=== PATIENT | female | born 1925 | race Caucasian/White ===

== ENCOUNTER 2016-09-28 17:34 | Inpatient (IN) | payer MEDICARE ==
[~2016-09-28] VITALS: Ht 165.1 cm; Wt 77.1 kg
[2016-09-28 19:12] LABS: APPEARANCE CLEAR (CLEAR); BILIRUBIN NEGATIVE (NEGATIVE); COLOR STRAW (YELLOW); GLUCOSE 1000 mg/dL (NEGATIVE); KETONE NEGATIVE (NEGATIVE); LEUKOCYTE ESTERASE NEGATIVE (NEGATIVE); NITRITE NEGATIVE (NEGATIVE); PROTEIN TRACE mg/dL (NEGATIVE); SPECIFIC GRAVITY 1.015 (1.005-1.020); UROBILINOGEN NORMAL (NORMAL)
[2016-09-28 19:13] LABS: BACTERIA FEW /hpf (NONE SEEN); EPITHELIAL CELLS 0-5 /hpf (0-5); MUCUS <1+ /lpf (NONE SEEN); RED CELLS - URINE 0-5 /hpf (0-5); WHITE CELLS - URINE 0-5 /hpf (0-5)
[2016-09-28 20:06] LABS: BASOPHILS 0.4 % (0.0-2.0); EOSINOPHILS 0.6 % (0-7); HEMATOCRIT 40.4 % (36.0-48.0); HEMOGLOBIN 13.1 g/dL (12-16); IMMATURE GRANULOCYTES 0.4 % (0-5); LYMPHOCYTES 6.2 % (15-50); MCHC 32.4 g/dL (31.0-37.0); MCV 89.6 fL (80.0-100.0); MEAN PLATELET VOLUME 11.1 fL (7.4-10.4); MONOCYTES 4.8 % (2-11); NEUTROPHILS 87.6 % (40-80); RBC 4.51 10x6/uL (4.00-5.40); RDW 13.6 % (11.5-14.5)
[2016-09-28 20:09] LABS: PLATELET COUNT 251 10x3/uL (130-400)
[2016-09-28 20:19] LABS: APTT 26.2 SECONDS (22.8-39.4); INR 1.03 (0.85-1.17); PROTIME 13.4 SECONDS (11.6-15.0)
[2016-09-28 20:23] LABS: ALBUMIN 3.9 g/dL (3.4-5.0); ANION GAP 15.1 mmol/L (8-16); BILIRUBIN - TOTAL 0.29 mg/dL (0.2-1.3); CALCIUM 8.4 mg/dL (8.5-10.1); CARBON DIOXIDE 26.4 mmol/L (21.0-32.0); CREATININE - SERUM 1.3 mg/dL (0.6-1.3); POTASSIUM - SERUM 4.5 mmol/L (3.5-5.1); PROTEIN - SERUM 7.5 g/dL (6.4-8.2)
[2016-09-28] MEDS ORDERED: OXYBUTYNIN CHLOR5 MG PO (21:21)
[2016-09-28] MEDS ORDERED: TOPROL XL50 MG PO (21:22)
[2016-09-28] MEDS ORDERED: NORVASC10 MG PO (21:22)
[2016-09-28] MEDS ORDERED: JANUVIA50 MG PO (21:23)
[2016-09-28] MEDS ORDERED: LIPITOR10 MG PO (21:23)
[2016-09-28] MEDS ORDERED: GLIMEPIRIDE4 MG PO (21:24)
[2016-09-28] MEDS ORDERED: LEVOTHYROXINE75 MCG PO (21:24)
[2016-09-28 23:03] VITALS: BP 139/59; BMI 28.3
[2016-09-29 02:15] VITALS: BP 139/59
[2016-09-29 04:00] VITALS: BP 152/82
--- NOTE | 2016-09-29 08:15 | NUR ---
AWAKE ALERT COLOR ADQ SKIN WARM AND DRY NPO FOR SURG THIS AM.
--- NOTE | 2016-09-29 08:46 | NUR ---
TO OR VIA FAMILY AT BEDSIDE.
[2016-09-29 10:36] VITALS: BP 156/68
[2016-09-29 10:52] VITALS: Ht 165.1 cm; Wt 77.1 kg
[2016-09-29 11:31] VITALS: BP 140/70
--- NOTE | 2016-09-29 11:34 | NUR ---
RECD TO ROOM 2220 VIA BED FROM RR SLEEPY BUT AROUSABLE 02 AT 3L N/C AT PRESENT DSG INTACT TO LEFT HIP AT PRESENT.
[2016-09-29 12:00] VITALS: BP 136/66
--- NOTE | 2016-09-29 13:00 | NUR ---
SLEEPING QUIETLY AT PRESENT N/C VOICED.
--- NOTE | 2016-09-29 15:00 | NUR ---
SLEEPING QUIETLY ICE TO LEFT HIP DSG SCD IRENE IN PLACE.
[2016-09-29 15:12] VITALS: BP 146/79
--- NOTE | 2016-09-29 17:00 | NUR ---
FAMILY AT BEDSIDE TAKING SUPPER WELL AND RET.
--- NOTE | 2016-09-29 19:00 | NUR ---
STATUS REMAINS UNCHGD AT PRESENT BROCK CATH IN PLACE .
--- NOTE | 2016-09-30 02:53 | NUR ---
PATIENT CONFUSED AND ACCIDENTLY PULLED OUT PIV TO LFA, CATHETER INTACT. NEW PIV PLACED IN LFA JUST PROXIMAL TO THE WRIST.
[2016-09-30 04:00] VITALS: BP 132/89
[2016-09-30 04:58] LABS: BASOPHILS 0.1 % (0.0-2.0); EOSINOPHILS 0 % (0-7); HEMOGLOBIN 10.7 g/dL (12-16); IMMATURE GRANULOCYTES 0.4 % (0-5); LYMPHOCYTES 6.2 % (15-50); MCH 28.4 pg (26.0-34.0); MCHC 31.5 g/dL (31.0-37.0); MCV 90.2 fL (80.0-100.0); MONOCYTES 7.5 % (2-11); NEUTROPHILS 85.8 % (40-80); RBC 3.77 10x6/uL (4.00-5.40); RDW 13.8 % (11.5-14.5); WBC 15.6 10x3/uL (4.8-10.8)
[2016-09-30 04:59] LABS: PLATELET COUNT 198 10x3/uL (130-400)
--- NOTE | 2016-09-30 05:09 | NUR ---
PATIENT LAYING IN BED CONFUSED WITH VISUAL HALLUCINATIONS. NO SIGNS OF DISTRESS, HAS BROCK CATHETER. DRESSING TO RIGHT HIP INTACT WITH ICE PACK APPLIED NEXT TO IT. PIV RESITED TO THE UNDERSIDE OF THE LFA INFUSING 1/2NS@75. BED IN LOWEST LOCKED POSITION, HOB ELEVATED 30 DEGREES, CALL LIGHT WITHIN REACH, BED ALARM ON.
[2016-09-30 05:18] LABS: ANION GAP 14.2 mmol/L (8-16); CALCIUM 7.8 mg/dL (8.5-10.1); CARBON DIOXIDE 24.8 mmol/L (21.0-32.0); CREATININE - SERUM 1.1 mg/dL (0.6-1.3)
[2016-09-30 05:30] VITALS: BP 143/71
--- NOTE | 2016-09-30 07:15 | NUR ---
SLEEPING QUIETLY AT PRESENT RESP EVEN AND UNLABORED AT PRESENT 02 CONT AT 2L N/C AT PRESENT DSG TO LEFT HIP CLEAN DRY INTACT AT PRESENT BROCK CATH IN TACT AND DRAINING YELLOW URINE AT PRESENT.
--- NOTE | 2016-09-30 09:00 | NUR ---
MEDS GIVEN TELMA WELL AT PRESENT PT MORE ALERT AT PRESENT.
[2016-09-30 09:01] VITALS: BP 156/63
[2016-09-30 12:06] VITALS: BP 137/38
--- NOTE | 2016-09-30 13:30 | NUR ---
WIDE AWAKE IN ROOM UP IN CHAIR PER PT DSG TO LEFT HIP WITH ICE INTACT.
--- NOTE | 2016-09-30 15:00 | NUR ---
REMAINS CONFUSED PT RE-ORIENTED AT PRESENT DENIES ANY NEEDS AT PRESENT.
[2016-09-30 16:26] VITALS: BP 147/60
--- NOTE | 2016-09-30 17:00 | NUR ---
QUIET IN ROOM AT PRESENT DENIES ANY NEEDS AT PRESENT CONT CONFUSED AT PRESENT.
--- NOTE | 2016-09-30 19:08 | NUR ---
STATUS REMAINS UNCHGD AT PRESENT.
--- NOTE | 2016-09-30 20:22 | NUR ---
PATIENT ATTENDING, VISUAL AND AUDIO HALLUCINATIONS, NO ACUTE DISTRESS. BED ALARM ON, IN LOWEST LOCKED POSITION, CALL LIGHT ON.
[2016-09-30 21:00] VITALS: BP 135/53
[2016-10-01 01:00] VITALS: BP 140/60
--- NOTE | 2016-10-01 04:00 | NUR ---
PATIENT AWAKE IN BED, CONFUSED AND HALLUCINATING. IV TO LEFT FA PATENT WITH NO REDNESS OR SWELLING. BROCK DRAINING TO GRAVITY. DRESSING TO LEFT HIP CDI. SCD'S ON. B/A ON. SRX2. BED LOW. DOOR OPEN.
[2016-10-01 05:00] VITALS: BP 128/55
[2016-10-01 05:43] LABS: ANION GAP 15.8 mmol/L (8-16); CALCIUM 7.4 mg/dL (8.5-10.1); CARBON DIOXIDE 23.9 mmol/L (21.0-32.0); POTASSIUM - SERUM 3.7 mmol/L (3.5-5.1)
[2016-10-01 05:54] LABS: BASOPHILS 0.2 % (0.0-2.0); EOSINOPHILS 0.1 % (0-7); IMMATURE GRANULOCYTES 0.4 % (0-5); LYMPHOCYTES 7.2 % (15-50); MCH 29.2 pg (26.0-34.0); MCHC 32.3 g/dL (31.0-37.0); MCV 90.4 fL (80.0-100.0); MEAN PLATELET VOLUME 11.4 fL (7.4-10.4); MONOCYTES 8.5 % (2-11); NEUTROPHILS 83.6 % (40-80); PLATELET COUNT 173 10x3/uL (130-400); RBC 3.43 10x6/uL (4.00-5.40); RDW 13.9 % (11.5-14.5); WBC 16.4 10x3/uL (4.8-10.8)
--- NOTE | 2016-10-01 07:20 | NUR ---
ASSESSMENT PER FLOW SHEET.PT WITHOUT DISTRESS.DRESSING TO LEFT HIP CLEAN,DRY AND INTACT.DENIES PAIN AT PRESENT.BED ALARM ON AND FUNCTIONING.CALL LIGHT IN REACH
[2016-10-01 08:18] VITALS: BP 145/53
[2016-10-01 08:50] LABS: APPEARANCE HAZY (CLEAR); BILIRUBIN 1+ (NEGATIVE); COLOR STRAW (YELLOW); GLUCOSE 250 mg/dL (NEGATIVE); KETONE MODERATE mg/dL (NEGATIVE); LEUKOCYTE ESTERASE 1+ (NEGATIVE); NITRITE NEGATIVE (NEGATIVE); PROTEIN 2+ mg/dL (NEGATIVE); UROBILINOGEN NORMAL (NORMAL)
[2016-10-01 08:57] LABS: AMORPHOUS SEDIMENT <1+ /lpf (NONE SEEN); BACTERIA NONE SEEN /hpf (NONE SEEN); EPITHELIAL CELLS 0-5 /hpf (0-5); GRANULAR CAST OCC /lpf (NONE SEEN); MUCUS <1+ /lpf (NONE SEEN); RED CELLS - URINE 0-5 /hpf (0-5); WHITE CELLS - URINE 0-5 /hpf (0-5)
--- NOTE | 2016-10-01 11:07 | OP ---
PATIENT NAME: FADY MARIN MEDICAL RECORD: [id number] :[birth year] LOCATION:[facility] ADMISSION DATE:09/28/16 SURGEON: HANY ESQUIVEL MD DATE OF OPERATION: 09/28/2016 PREOPERATIVE DIAGNOSIS: Comminuted intratrochanteric hip fracture of the left hip. POSTOPERATIVE DIAGNOSIS: Comminuted intratrochanteric hip fracture of the left hip. PROCEDURE: Cephalomedullary fixation of comminuted intertrochanteric hip fracture -- gamma nail. SURGEON: Hany Esquivel MD ANESTHESIA: General. INTRAOPERATIVE COMPLICATIONS: None. SUMMARY OF PATHOLOGIC FINDINGS: The patient with comminuted intertrochanteric hip fracture consistent with preoperative radiographs and diagnosis. OPERATIVE SUMMARY IN DETAIL: The patient was brought to the operating table and placed on the operating table in supine position. After general laryngeal mask was administered, the patient was placed on the fracture table where the right leg was placed in the well leg hyde. The left leg was placed in the traction boot. She was held firmly to the operating table using the vacuum pack suction system and this secured the strap. Traction was pulled resulting in a near anatomic mu-ism seen on both AP and lateral planes. The hip was prepped and draped in a routine sterile fashion. Curvilinear awl was used to make a starting tip. A ball-tipped guidewire was driven past the fracture and down the leg. Proximal reaming was followed by insertion of the 125 short gamma nail to the appropriate depth. The guidewire was placed in a center-center position for reaming for the compression screw. A compression screw was gently put into place to the appropriate position. It was compressed and a derotational screw was deployed. Distal locking screw was then put in this time under fluoroscopy. Having completed this, full length films were taken. The wound was irrigated and closed in the usual fashion with #1 Vicryl followed by 2-0 Vicryl and skin nikhil. Sterile dressings were applied. The patient was awakened, taken to recovery in stable condition. All final needle and sponge counts were correct. TRANSINT:[id number] Voice Confirmation ID: [id number] DOCUMENT ID: [id number] HANY ESQUIVEL MD at 1104 CC: [id number] DICTATION DATE: 09/29/16 1120 STEM SIZER: 09/29/16 1137 ADM IN [facility] [address] [place] [address]
--- NOTE | 2016-10-01 11:17 | NUR ---
PT HERE ON UNIT TO ASSIST FROM CHAIR TO BATHROOM.PT SITTING UP MOST OF MORNING.FALL PRECAUTIONS REMAINS IN PLACE.MONITOR
--- NOTE | 2016-10-01 12:20 | NUR ---
Rehab Note- Rehab Prescreen order received. The patient is post op day #2 for left hip fracture due to fall. Will plan to admit to [facility] Tues(10/02/16) if the patient is in aggreeance and the physician feels that she is ready to be transferred out of the acute hospital. Thank you for this referral! Jacquelyn Figueroa RN Clinical Liaison, Jim
[2016-10-01 12:27] VITALS: BP 143/66
--- NOTE | 2016-10-01 14:19 | NUR ---
Patient Name: FADY MARIN Admission Status: ER Accout number: [id number] Admission Date: 09-28-2016 : 1925 Admission Diagnosis: Attending: LING Current LOS: 3 Anticipated DC Date: 10-03-2016 Planned Disposition: Inpatient Rehab Primary Insurance: MEDICARE A & B Discharge Planning Comments: CM MET WITH PATIENT REGARDING D/C NEEDS AND PLANS. PATIENT STATED SHE LIVES AT [facility] AND THEY HAVE AN ELEVATOR AT THE FACILITY. PATIENT STATED SHE IS INDEPENDENT WITH HER CARE AND HAS A CANE, AND SHOWER BENCH AT HER HOME. PATIENTS PCP IS DR. LAU AND PH[facility]ACY IS [facility]. PATIENT WILL GO TO IP REHAB AT DISCHARGE. CM WILL CONTINUE TO FOLLOW PATIENT WITH D/C NEEDS AND PLANS. PCP DR. SID MAHER ON [facility] (PHARMACY) [phone] ALDO HERNANDEZ () Server Programmer: Alicia Lopez Is the patient Alert and Oriented? Yes 0 * How many steps to enter\exit or inside your home? ELEV. 0 * PCP DR. LAU 0 * Pharmacy [facility] 0 * Preadmission Environment Other 0 * Other Environment INDEPENDENT LIVING 0 * Facility Name [facility] 0 * ADLs Independent 0 * Equipment Cane Tub Bench 0 * List name and contact numbers for known caregivers / representatives who currently or will assist patient after discharge: ALDO HERNANDEZ 0 * Community resources currently utilized None 0 * Additional services required to return to the preadmission environment? Yes 0 * Can the patient safely return to the preadmission environment? Yes 0 * Has this patient been hospitalized within the prior 30 days at any hospital? No 0 Grand Total: 0
--- NOTE | 2016-10-01 14:42 | NUR ---
NUTRITION MONITORING & EVAL CHART REVIEWED, PT VISIT X2 BUT SLEEPING. ADA DIET WITH 25% INTAKE MEALS. WILL CONTINUE TO PROVIDE DIET, MONITOR PO INTAKE. RD FOLLOWING
[2016-10-01 15:55] VITALS: BP 135/55
--- NOTE | 2016-10-01 20:00 | NUR ---
ASSESSMENT NV FLOWSHEET. DRESSING TO LEFT HIP INCISION C/D/I. SR UP X2 CALL LIGHT WITHIN REACH IV PATENT LEFT FOREARM OF 1/2NS AT 75CC'/HR SITE CLEAR. BROCK TO BEDSIDE DRAINAGE. O2 ON 3L/M PER NC. NO DISTRESS.
[2016-10-01 21:00] VITALS: BP 133/59
--- NOTE | 2016-10-01 21:30 | NUR ---
MEDS GIVEN PER OCT. LACU=324. 2 UNITS OF REGULAR INSULIN GIVEN SUBC PER S/S.
--- NOTE | 2016-10-02 | NUR ---
EYES CLOSED RESPIRATIONS WITH EASE AND UNLABORED.
[2016-10-02 01:58] VITALS: BP 128/58
[2016-10-02 05:00] VITALS: BP 119/60
[2016-10-02 05:39] LABS: BASOPHILS 0.1 % (0.0-2.0); EOSINOPHILS 1.4 % (0-7); HEMOGLOBIN 9.4 g/dL (12-16); IMMATURE GRANULOCYTES 0.6 % (0-5); LYMPHOCYTES 6.7 % (15-50); MCH 28.6 pg (26.0-34.0); MCHC 32.4 g/dL (31.0-37.0); MEAN PLATELET VOLUME 11.8 fL (7.4-10.4); NEUTROPHILS 82.2 % (40-80); PLATELET COUNT 186 10x3/uL (130-400); RBC 3.29 10x6/uL (4.00-5.40); RDW 13.6 % (11.5-14.5); WBC 12.3 10x3/uL (4.8-10.8)
[2016-10-02 05:57] LABS: MCV 88.1 fL (80.0-100.0)
--- NOTE | 2016-10-02 06:09 | NUR ---
KTRK=870. NO COVERAGE NEEDED MEDS PER OCT.
[2016-10-02 06:13] LABS: ANION GAP 16.2 mmol/L (8-16); CALCIUM 7.3 mg/dL (8.5-10.1); CARBON DIOXIDE 22.9 mmol/L (21.0-32.0); POTASSIUM - SERUM 3.1 mmol/L (3.5-5.1)
--- NOTE | 2016-10-02 06:31 | NUR ---
K+ RESULTS=3.1. 40MEQ KCL PO GIVEN PER ELECTROLYTE PROTOCAL. WILL REPEAT LAB AT 1000 AM AND IN AM.
[2016-10-02 07:59] VITALS: BP 139/64
--- NOTE | 2016-10-02 09:00 | NUR ---
ASSESSMENT PER FLOW SHEET.PT WITHOUT DISTRESS.CALL LIGHT IN REACH
[2016-10-02 12:06] VITALS: BP 115/53
[2016-10-02] MEDS ORDERED: HYDROCODONE-APA1 TAB PO (13:05)
[2016-10-02] MEDS ORDERED: ELIQUIS2.5 MG PO (13:05)
--- NOTE | 2016-10-02 14:01 | NUR ---
BROCK DCD ORDERED.450CC OF YELLOW URINE EMPTIED FROM BAG.
--- NOTE | 2016-10-02 15:22 | NUR ---
REPORT TO RUPERTO ON REHAB.PT WILL GO TO ROOM [id number]
--- NOTE | 2016-10-02 16:02 | NUR ---
TO REHAB VIA WHEELCHAIR TO ROOM 8022S
== END 2016-10-02 16:04 | DRG 481 ==
LOC: D.ER 17:34 → OBSVTIME 20:21 → D.MS 20:21
PROVIDERS: Family Medicine; Physician Assistant; ADMIT Orthopaedic Surgery
PROC: 0QS736Z Reposition Left Upper Femur with Intramedullary Internal Fixation Device, Percutaneous Approach (ICD-10-PCS; principal; 2016-09-28)
DX: S72.142A Displaced intertrochanteric fracture of left femur, initial encounter for closed fracture (principal); D62 Acute posthemorrhagic anemia; W17.89XA Other fall from one level to another, initial encounter; G47.30 Sleep apnea, unspecified; I10 Essential (primary) hypertension; E11.65 Type 2 diabetes mellitus with hyperglycemia; E03.9 Hypothyroidism, unspecified

== ENCOUNTER 2016-10-02 16:15 | Inpatient (IN) | payer MEDICARE ==
[~2016-10-02] VITALS: Ht 165.1 cm; Wt 74.8 kg
--- NOTE | 2016-10-02 14:45 | NUR ---
PATIENT ADMITTED TO REHAB FROM MED SURG. BROUGHT DOWN BY STAFF IN WHEELCHAIR. DIAG: S/P LEFT HIP FRACTURE. ALERT/ORIENT. HX OF FALLS. BED ALARM ON. PATIENT WEARS GLASSES, HAS BILATERAL HEARING AIDS, AND PARCLES UPPER. TRANSFERED INTO BED WITH MOD ASST OF ONE. DRESSING TO LEFT HIP C/D/I.
[~2016-10-02 16:15] MED LIST: ELIQUIS2.5 MG PO; GLIMEPIRIDE4 MG PO; HYDROCODONE-APA1 TAB PO; JANUVIA50 MG PO; LEVOTHYROXINE75 MCG PO; LIPITOR10 MG PO; NORVASC10 MG PO; OXYBUTYNIN CHLOR5 MG PO; TOPROL XL50 MG PO
[2016-10-02 17:19] VITALS: BP 127/57; BMI 27.5
--- NOTE | 2016-10-02 18:24 | NUR ---
RESTING QUIETLY IN BED
--- NOTE | 2016-10-02 19:37 | NUR ---
ASSISTED PT MOD ASSIST WITH TRANSFER FROM TOILET TO W/C AND FROM BED TO CHAIR, MAS ASSIST TO TRANSFER TO LYING POSITION. PT C/O PAIN IN LEFT HIP, DENIES NEED FOR PAIN MEDICATION STATING USUALLY IS OK WHEN SHE IS LYING SUPINE WITH HOB SLIGHTLY ELEVATED. PHONE AND PERSONAL NEEDS WITHIN REACH.
--- NOTE | 2016-10-02 19:39 | NUR ---
SCD ON BILAT
--- NOTE | 2016-10-02 22:00 | NUR ---
PT. IN BED WITH HOB UP FOR COMFORT AND IS WATCHING TV. NO VOICED COMPLAINTS AT THIS TIME AND CALL LIGHT IS WITHIN REACH.
--- NOTE | 2016-10-03 00:03 | NUR ---
PT. IN BED WITH HOB UP FOR COMFORT WITH EYES CLOSED AND RESP. EVEN. CALL LIGHT WITHIN REACH.
--- NOTE | 2016-10-03 04:14 | NUR ---
PT. IN BED WITH HOB UP FOR COMFORT WITH EYES CLOSED AND RESP. EVEN. CALL LIGHT WITHIN REACH.
--- NOTE | 2016-10-03 08:00 | NUR ---
SITTING UP IN BED EATING BREAKFAST.DENIES NEEDS.
[2016-10-03 08:17] VITALS: BP 116/60
--- NOTE | 2016-10-03 08:23 | NUR ---
PATIENT ALERT/ORIENT X4. SITTTING UP IN BED TO EAT BREAKFAST. BED ALARM ON DUE TO HX OF FALLS. CALL LIGHT WITHIN REACH.
--- NOTE | 2016-10-03 10:01 | NUR ---
PATIENT IN REHAB ROOM. WORKING WITH PHYSICAL THERAPIST.
--- NOTE | 2016-10-03 11:30 | NUR ---
GLUCOSE LEVEL 322. EIGHT UNITS OF SLIDING SCALE INSULIN GIVEN
[2016-10-03 12:56] VITALS: Ht 165.1 cm; Wt 74.8 kg
--- NOTE | 2016-10-03 15:12 | NUR ---
PATIENT TO BE R/A ON [place]END.
--- NOTE | 2016-10-03 15:34 | NUR ---
CARE TEAM MEETING: PATIENT NEW TO UNIT AND WILL BE RA AT NEXT MEETING. PCP IS DR. LAU, SHE RESIDES AT [facility]. SHE HAS CANE AND SHOWER BENCH. WILL CONTINUE TO FOLLOW WITH PATIENT UNTIL DISCHARGED
--- NOTE | 2016-10-03 17:05 | NUR ---
GLUCOSE LEVEL 131. NO SLIDING SCALE INSULIN GIVEN
[2016-10-03 19:00] VITALS: BP 125/73
--- NOTE | 2016-10-03 19:45 | NUR ---
PT. IN BED WITH HOB UP FOR COMFORT WITH EYES CLOSED AND RESP. EVEN. PT. AWAKENS EASILY FOR ASSESSMENT. PT. IS VERY [place] AND ALMOST EVERYTHING HAS TO BE REPEATED. PT. HAS NO VOICED NEEDS AT THIS TIME AND SHE HAS HER CALL LIGHT WITHIN REACH.
--- NOTE | 2016-10-03 23:04 | NUR ---
PT. IN BED WITH HOB UP FOR COMFORT WITH EYES CLOSED AND RESP. EVEN. CALL LIGHT WITHIN REACH.
--- NOTE | 2016-10-04 03:04 | NUR ---
PT. IN BED WITH HOB UP FOR COMFORT WITH EYES CLOSED AND RESP. DEEP AND EVEN. CALL LIGHT WITHIN REACH.
--- NOTE | 2016-10-04 07:50 | NUR ---
SITTING UP IN BED WITH CALLIGHT IN REACH.
[2016-10-04 10:18] VITALS: BP 135/68
--- NOTE | 2016-10-04 11:55 | NUR ---
SITTING IN WHEELCHAIR IN ROOM. BS 265, 6 UNITS OF HUMALOG INSULIN GIVEN.
--- NOTE | 2016-10-04 13:42 | NUR ---
SITTING IN WHEELCHAIR IN THE GYM.
--- NOTE | 2016-10-04 15:39 | NUR ---
RESTING IN BED WOITH CALLIGHT IN REACH.
--- NOTE | 2016-10-04 16:50 | NUR ---
RESTING IN BED TALKING ON THE PHONE.
--- NOTE | 2016-10-04 19:50 | NUR ---
ASSISTED PT TO BATHROOM WITH MOD ASSISTANCE WITH BED TRANSFERS, ASSIST FROM SIT TO STAND POSITION ON TOILET, NEEDS MAX ASSIST WITH LOWER EXTREMITY DRESSING, PT HAS DIFFICULTY BENDING AND REACHING. PT CONVERSES ABOUT DAUGHTER ILLNESS. PT DENIES ANY OTHER NEEDS.
[2016-10-04 19:51] VITALS: BP 120/56
--- NOTE | 2016-10-04 21:25 | NUR ---
PT PLEASANT, ASSISTED WITH HS CARES, TAKES MEDICATIONS WITHOUT DIFFICULTY, CONVERSIVE. EATING HS SNACK. PT DENIES ANY OTHER NEEDS.
--- NOTE | 2016-10-05 00:40 | NUR ---
PT RESTING QUIETLY, HOB SLIGHTLY ELEVATED, RESPIRATIONS REGULAR AND UNLABORED, NO ACUTE S/S OF DISTRESS.
[2016-10-05 05:54] LABS: BASOPHILS 0.2 % (0.0-2.0); EOSINOPHILS 2.5 % (0-7); HEMATOCRIT 31.4 % (36.0-48.0); HEMOGLOBIN 10.1 g/dL (12-16); IMMATURE GRANULOCYTES 1.8 % (0-5); LYMPHOCYTES 7.3 % (15-50); MCH 28.8 pg (26.0-34.0); MCHC 32.2 g/dL (31.0-37.0); MCV 89.5 fL (80.0-100.0); MONOCYTES 8.8 % (2-11); NEUTROPHILS 79.4 % (40-80); RBC 3.51 10x6/uL (4.00-5.40); RDW 13.8 % (11.5-14.5); WBC 12.6 10x3/uL (4.8-10.8)
[2016-10-05 06:04] LABS: PLATELET COUNT 286 10x3/uL (130-400)
[2016-10-05 06:17] LABS: ANION GAP 15.4 mmol/L (8-16); CALCIUM 7.7 mg/dL (8.5-10.1); CARBON DIOXIDE 24.7 mmol/L (21.0-32.0); POTASSIUM - SERUM 4.1 mmol/L (3.5-5.1)
--- NOTE | 2016-10-05 06:49 | NUR ---
PT IN BED WITH HOB UP FOR COMFORT, EYES CLOSED, CHEST RISING AND FALLING, BED IN LOWEST POSITION AND CALL LIGHT WITHIN REACH.
--- NOTE | 2016-10-05 07:55 | NUR ---
CALL FOR ASSISTANCE TO BR AND UP TO TOILET WITHOUT ANY FALLS NOTED.
[2016-10-05 08:55] VITALS: BP 130/55
--- NOTE | 2016-10-05 09:49 | RHP ---
PATIENT: FADY MARIN MEDICAL RECORD: [id number] ACCOUNT: [id number] [facility] : [birth year] ADMISSION DATE: 10/02/16 REHABILITATION HISTORY AND PHYSICAL EXAMINATION POST ADMISSION PHYSICIAN EXAMINATION Post-Admission Physical Exam and History and Physical DATE OF ADMISSION: 10/02/2016 ADMITTING DIAGNOSES: Status post acute closed left hip fracture, status post gamma nail and acute blood loss anemia. HISTORY OF PRESENT ILLNESS: The patient is an elderly female who was admitted to inpatient rehab status post acute closed left hip fracture with postop complications acute blood loss anemia. She is 89 years young. She was admitted for left hip fracture, reports that she was at home, she tripped when she was getting out of the car. She is currently a resident of [facility]. She has got a past medical history of hypertension, diabetes and hypothyroidism. She had a total knee replacement in 2009. She is completely independent with her ADLs and mobility prior to the fall. She is currently max assist with her ADLs and is max assist with her mobility. She plans to return back to [facility] and would like to get back to her prior level of function if possible. COMORBIDITIES: Include hypertension, diabetes, blood loss anemia, hypothyroidism, falls, pain, some dyspnea and shortness of breath in the past. PAST MEDICAL HISTORY: Significant for diabetes, hypertension and hypothyroidism. PAST SURGICAL HISTORY: Includes gallbladder removal, thyroid removed and knee replacement, now gamma nail to her hip. ALLERGIES: No known drug allergies. CURRENT MEDICATIONS: Include Januvia 50 mg daily, metoprolol 50 mg daily, Synthroid 75 mcg daily, amlodipine 10 mg daily, she is on a low resistant sliding scale with Humalog, Ditropan 5 mg b.i.d., Sherborn 1 tab q.4 hours p.r.n., she is on Amaryl 4 mg b.i.d. with meals, atorvastatin 10 mg at bedtime, Eliquis 2.5 mg b.i.d. and polyethylene glycol 17 grams in 8 ounces of water daily. HABITS: No alcohol or tobacco use. FAMILY HISTORY: Noncontributory. SOCIAL HISTORY: The patient hopes to return back to [facility] and get back to her prior level of functioning. She is . REVIEW OF SYSTEMS: GENERAL: Does complain of weakness. HEENT: She denies cold, cough, or congestion. CARDIOVASCULAR: Denies chest pain. PHYSICAL EXAMINATION: VITAL SIGNS: Stable, afebrile. HISTORY AND PHYSICAL [id number] FADY MARIN GENERAL: Elderly female in no acute distress, alert upon exam. HEENT: Normocephalic, atraumatic. Mucosa moist. NECK: Supple. No lymphadenopathy. LUNGS: Clear at this time. HEART: A regular rate and rhythm. ABDOMEN: Benign. EXTREMITIES: No clubbing, cyanosis, or edema. She does have normal postop swelling to her hip region. NEUROLOGIC: Intact. ASSESSMENT: This is an 89-year-old female patient admitted to rehab with a working diagnosis of status post left hip fracture with closed reduction and fixation with the gamma nail. The patient has potential to make improvement. We instituted the following multidisciplinary therapies including, but not limited to, physical, occupational, respiratory, speech, nutritional services, prosthetics and orthotics. Given her complex condition and risk for more complications, rehabilitation services cannot be provided at a low level of care such as a [facility] facility. PLAN: 1. Admit to [facility] rehab for intensive inpatient therapy to include the following disciplines: A. Physical therapy to improve gait, all transfer skills and bed mobility to a modified independent level. B. Occupational therapy to improve activities of daily living to a modified independent level. C. Case management to assist with discharge planning and placement options. D. Nutrition to assist with nutritional needs. E. Rehabilitation nursing to assist in monitoring the patient's underlying medical conditions and to assist with any type of bowel or bladder management. 2. The patient's current medication and medical care will be continued. 3. The patient will be placed on standard fall precautions. 4. The patient's estimated length of stay is approximately 7-10 days. 5. We will hopefully get her back to her prior level of function, back to [facility] quickly. TRANSINT:[id number] Voice Confirmation ID: [id number] DOCUMENT ID: [id number] NAPOLEON MULTANI MD at 0949 CC: [id number] DICTATION DATE: 10/03/16 0924 PROFESSOR OF VISUAL ARTS: 10/03/16 1658 ADM IN [place] [id number] [place] [address]
--- NOTE | 2016-10-05 11:45 | NUR ---
ASSISTED FROM BED TO WHEELCHAIR FOR LUNCH.
--- NOTE | 2016-10-05 13:30 | NUR ---
RESTING IN BED WITH CALLIGHT IN REACH.
--- NOTE | 2016-10-05 14:11 | NUR ---
Nutrition Follow Up: Chart reviewed. Pt is eating 58% meal avg on a Diabetic diet. Meds and labs noted. +BM 10/04/16. Wt stable. Pt with fair po intake at this time. Rec continue current diet. RD following.
--- NOTE | 2016-10-05 15:08 | NUR ---
SITTING IN WHEELCHAIR IN THE ROOM.
--- NOTE | 2016-10-05 17:21 | NUR ---
SITTING IN WHEELCAIR IN THE ROOM.
[2016-10-05 19:15] VITALS: BP 122/57
--- NOTE | 2016-10-05 19:40 | NUR ---
PT. SITTING UP IN W/C AND REQUESTED ASSISTANCE TO BR TO VOID. ASSISTED PT. TO BR AND ASSISTED BACK TO BED PER HER REQUEST. ASSESSMENT COMPLETED. NO VOICED NEEDS AT THIS TIME AND PT. HAS HER CALL LIGHT WITHIN REACH.
--- NOTE | 2016-10-05 21:30 | NUR ---
PT. IN BED WITH HOB UP FOR COMFORT WITH EYES CLOSED AND RESP. EVEN. PT. AWAKENS EASILY AND HAS NO VOICED NEEDS AT THIS TIME AND HER CALL LIGHT IS WITHIN REACH.
--- NOTE | 2016-10-05 23:05 | NUR ---
PT. IN BED WITH HOB UP FOR COMFORT WITH EYES CLOSED AND RESP. DEEP AND EVEN. CALL LIGHT REMAINS WITHIN HER REACH.
--- NOTE | 2016-10-06 02:06 | NUR ---
PT. IN BED WITH HOB UP FOR COMFORT WITH EYES CLOSED AND RESP. DEEEP AND EVEN. CALL LIGHT WITHIN REACH.
[2016-10-06 07:00] VITALS: BP 110/74
--- NOTE | 2016-10-06 07:55 | NUR ---
ASSISTED TO WHEELCHAIR FROM THE BED WITHOUT ANY FALLS NOTED.
--- NOTE | 2016-10-06 09:45 | NUR ---
SITTING IN WHEELCHAIR AND TOOK MEDS WITH EASE.
--- NOTE | 2016-10-06 11:25 | NUR ---
SITTING IN WHEELCHAIR IN ROOM. BS 262, 6 UNITS OF HUMALOG GIVEN.
--- NOTE | 2016-10-06 17:46 | NUR ---
SITTING UP IN W/C EATING SUPPER. CALL LIGHT IN REACH
--- NOTE | 2016-10-06 19:40 | NUR ---
PT. UP IN W/C FROM DAY SHIFT AND IS WANTING TO SIT UP LONGER. ASSESSMENT COMPLETED. NO VOICED NEEDS AT THIS TIME AND HER CALL LIGHT IS WITHIN REACH.
--- NOTE | 2016-10-06 21:15 | NUR ---
PT. REQUESTING TO GO BACK TO BED FROM W/C. ASSISTED BACK TO BED WITH MOD. ASSISTANCE. PT. POSITIONED TO COMFORT AND HAS HER CALL LIGHT WITHIN REACH. PT. WANTS TYLENOL TONIGHT WITH NIGHT TIME MEDS TO SEE IF THAT WILL HELP HER STIFFNESS IF SHE NEEDS TO GET UP IN THE MIDDLE OF THE NIGHT. CALL LIGHT WITHIN REACH.
[2016-10-06 22:55] VITALS: BP 129/53
--- NOTE | 2016-10-07 03:03 | NUR ---
PT. IN BED WITH HOB UP FOR COMFORT AND LLE UP ON PILLOW FOR COMFORT WITH EYES CLOSED AND RESP. DEEP AND EVEN. CALL LIGHT REMAINS WITHIN REACH.
[2016-10-07 07:00] VITALS: BP 102/53
--- NOTE | 2016-10-07 07:30 | NUR ---
LAYING IN BED RESTING QUIETLY CALL LIGHT IN REACH
--- NOTE | 2016-10-07 18:10 | NUR ---
IN W/C IN ROOM.
--- NOTE | 2016-10-07 19:40 | NUR ---
PT. IN BED WITH HOB UP FOR COMFORT AND REPORTS SHE IS READY FOR SLEEP AND WOULD LIKE HER TYLENOL WITH BED TIME MEDICATIONS. ASSESSMENT COMPLETED. NO OTHER VOICED NEEDS AT THIS TIME AND HER CALL LIGHT IS WITHIN REACH.
--- NOTE | 2016-10-07 22:37 | NUR ---
PT. IN BED WITH HOB UP FOR COMFORT WITH EYES CLOSED AND RESP. DEEP AND EVEN. CALL LIGHT WITHIN REACH.
[2016-10-07 23:40] VITALS: BP 145/49
--- NOTE | 2016-10-08 00:50 | NUR ---
PT. IN BED WITH HOB UP FOR COMFORT WITH EYES CLOSED AND RESP. DEEP AND EVEN. CALL LIGHT IS WITHIN REACH.
--- NOTE | 2016-10-08 02:54 | NUR ---
IN BED WITH HOB UP FOR COMFORT WITH EYES CLOSED AND RESP. DEEP AND EVEN. CALL LIGHT REMAINS WITHIN HER REACH.
--- NOTE | 2016-10-08 04:12 | NUR ---
PT. IN BED WITH HOB UP FOR COMFORT WITH EYES CLOSED AND RESP. DEEP AND EVEN. CALL LIGHT WITHIN REACH.
[2016-10-08 06:01] LABS: BASOPHILS 0.5 % (0.0-2.0); EOSINOPHILS 2.7 % (0-7); HEMATOCRIT 28.7 % (36.0-48.0); HEMOGLOBIN 9.4 g/dL (12-16); IMMATURE GRANULOCYTES 4.3 % (0-5); LYMPHOCYTES 11.4 % (15-50); MCH 28.9 pg (26.0-34.0); MCHC 32.8 g/dL (31.0-37.0); MCV 88.3 fL (80.0-100.0); MONOCYTES 9.3 % (2-11); NEUTROPHILS 71.8 % (40-80); RBC 3.25 10x6/uL (4.00-5.40); RDW 14.2 % (11.5-14.5); WBC 10.9 10x3/uL (4.8-10.8)
[2016-10-08 06:18] LABS: ANION GAP 13.4 mmol/L (8-16); CALCIUM 7.7 mg/dL (8.5-10.1); CARBON DIOXIDE 26.6 mmol/L (21.0-32.0); CREATININE - SERUM 1.3 mg/dL (0.6-1.3)
[2016-10-08 06:27] LABS: PLATELET COUNT 357 10x3/uL (130-400)
--- NOTE | 2016-10-08 08:00 | NUR ---
AWQAKE AND EATING BREAKFAST.CL IN REACH.
--- NOTE | 2016-10-08 08:17 | NUR ---
PT RECEIVED SITTING UP IN WHEELCHAIR. ASSISTED PT WITH BREAKFAST SETUP. PT DENIES ANY CONCERNS AT THIS TIME. CALL LIGHT AND PERSONAL ITEMS WITHIN REACH.
[2016-10-08 09:19] VITALS: BP 131/60
--- NOTE | 2016-10-08 17:34 | NUR ---
PT OBSERVED SITTING IN WHEELCHAIR EATING DINNER. PT DENIES ANY CONCERNS AT THIS TIME. CALL LIGHT AND PERSONAL ITEMS WITHIN REACH.
[2016-10-08 19:00] VITALS: BP 143/76
--- NOTE | 2016-10-08 19:40 | NUR ---
PT IN BED WITH EYES OPEN AND CHEST RISING. NO NEEDS OR CONCERNS MADE KNOWN. CALL LIGHT IN REACH.
--- NOTE | 2016-10-09 00:40 | NUR ---
PT IN BED WITH EYES CLOSED AND CHEST RISING. NO SIGN/SYMPTOMS OF DISTRESS NOTED. CALL LIGHT IN REACH.
--- NOTE | 2016-10-09 05:18 | NUR ---
PT IN BED WITH EYES CLOSED AND CHEST RISING. NO SIGN/SYMPTOMS OF DISTRESS NOTED. CALL LIGHT IN REACH.
--- NOTE | 2016-10-09 07:45 | NUR ---
PT IS RESTING IN BED WITH EYES OPEN. ALERT AND ORIENTED X 3. VOICED COMPLAINT OF LEFT HIP PAIN LEVEL OF 6. MEDICATED PER MAR. BILATERAL HEARING AIDES NOTED. SR'S ARE UP X 2 IN BED. CALL LIGHT AND BEDSIDE TABLE ARE WITHIN EASY REACH.
--- NOTE | 2016-10-09 09:35 | NUR ---
PT IS PARTICIPATING IN THERAPY AT THIS TIME.
[2016-10-09 10:25] VITALS: BP 130/71
--- NOTE | 2016-10-09 12:15 | NUR ---
PT IS RESTING IN BED WITH HOB UP 40 DEDGREES FEEDING SELF LUNCH. NO NEEDS VOICED.
--- NOTE | 2016-10-09 15:11 | NUR ---
PT IS SITTING IN HER WC IN HER ROOM WATCHING TV. NO NEEDS VOICED.
--- NOTE | 2016-10-09 15:30 | NUR ---
RESTING QUIETLY.DENIES NEEDS.
--- NOTE | 2016-10-09 17:57 | NUR ---
PT SITTING UP IN HER WC IN HER ROOM WATCHING TV. NO NEEDS VOICED AT THIS TIME.
[2016-10-09 18:36] LABS: APPEARANCE HAZY (CLEAR); BILIRUBIN NEGATIVE (NEGATIVE); COLOR YELLOW (YELLOW); GLUCOSE 50 mg/dL (NEGATIVE); KETONE NEGATIVE (NEGATIVE); LEUKOCYTE ESTERASE 2+ (NEGATIVE); NITRITE POSITIVE (NEGATIVE); PROTEIN TRACE mg/dL (NEGATIVE); SPECIFIC GRAVITY 1.015 (1.005-1.020); UROBILINOGEN NORMAL (NORMAL)
[2016-10-09 18:37] LABS: BACTERIA MANY /hpf (NONE SEEN); EPITHELIAL CELLS 0-5 /hpf (0-5); RED CELLS - URINE 0-5 /hpf (0-5); WHITE CELLS - URINE 25-50 /hpf (0-5)
[2016-10-09 19:00] VITALS: BP 131/71
--- NOTE | 2016-10-09 23:35 | NUR ---
PT RECEIVED UP IN WHEELCHAIR AT BEDSIDE. NO COMPLAINTS OR CONCERNS NOTED. ASSISTED TO BED BY TECH. IN BED WITH EYES CLOSED AND CHEST RISING UPON ENTRY TO ADMINISTER MEDICATIONS. AROUSED EASILY TO VERBAL STIMULI. MEDS GIVEN PER MAR WITHOUT DIFFICULTY. FSBS 301 WITH 8 UNITS GIVEN PER MAR. IN BED WITH EYES CLOSED AND CHEST RISING AT THIS TIME. CALL LIGHT IN REACH.
--- NOTE | 2016-10-10 03:51 | NUR ---
PT IN BED WITH EYES CLOSED. NO SIGN/SYMPTOMS OF DISTRESS NOTED. HAS SLEPT MOST OF SHIFT TO THIS TIME. AROUSED TO VERBAL STIMULI. NO CONCERNS MADE KNOWN. CALL LIGHT IN REACH.
--- NOTE | 2016-10-10 08:35 | NUR ---
RECEIVED RESTING IN BED.ASSESSMENT COMPLETED.NO SIGNS OF ACUTE DISTRESS.BED IN LOW POSITION,CL INEASY REACH.
[2016-10-10 09:51] VITALS: BP 126/62
--- NOTE | 2016-10-10 15:13 | NUR ---
CARE TEAM MEETING: PATIENT RESIDES AT [facility] AND WILL RETURN AT DISCHARGE. TENATIVE DISCHARGE DATE IS 10/18/16. DR. LAU IS PCP , HAS SHOWER BENCH AND CANE. WILL CONTINUE TO FOLLOW WITH PATIENT UNTIL DISCHARGED
[2016-10-10 19:00] VITALS: BP 133/58
--- NOTE | 2016-10-10 20:05 | NUR ---
PT. IN BR AND ASSISTED BACK TO BED VIA W/C. PT. TRANSFERS MUCH BETTER TONIGHT THEN WHEN I LAST HAD HER 2 NIGHTS AGO. PT. POSITIONED TO COMFORT AND ASSESSMENT COMPLETED. CALL LIGHT WITHIN REACH.
--- NOTE | 2016-10-10 22:55 | NUR ---
PT. IN BED WITH HOB UP FOR COMFORT WITH EYES CLOSED AND RESP. DEEP AND EVEN. CALL LIGHT WITHIN REACH.
--- NOTE | 2016-10-11 01:05 | NUR ---
PT. IN BED WITH EYES CLOSED AND RESP. DEEP AND EVEN. CALL LIGHT IS WITHIN REACH.
--- NOTE | 2016-10-11 03:24 | NUR ---
PT. IN BED WITH HOB UP FOR COMFORT WITH EYES CLOSED AND RESP. DEEP AND EVEN. CALL LIGHT WITHIN REACH.
--- NOTE | 2016-10-11 04:15 | NUR ---
PT. IN BED WITH HOB UP FOR COMFORT WITH EYES CLOSED AND RESP. DEEP AND EVEN. CALL LIGHT REMAINS WITHIN REACH.
--- NOTE | 2016-10-11 08:20 | NUR ---
RECEIVED SITTING UP IN CHAIR FOR BREAKFAST.ASSESSMENT COMPLETED.NO SIGNS OF ACUTE DISTRESS.CL IN EASY REACH,BED IN LOW POSITION.
[2016-10-11 09:00] VITALS: BP 130/55
--- NOTE | 2016-10-11 13:57 | NUR ---
Nutrition Follow Up: Chart reviewed. Pt is eating 58% meal avg on a diabetic diet. No new wt to assess. +BM 10/11/16. Labs noted - Glucose elevated. Meds noted including Januvia, Humalog, Amaryl. Pt continues with fair po intake. Rec continue current diet. Will continue to provide selective menus and honor food preferences. RD following.
[2016-10-11 19:00] VITALS: BP 154/66
--- NOTE | 2016-10-11 20:05 | NUR ---
PT. SITTING UP IN W/C WATCHING TV. ASSESSMENT COMPLETED. PT. WOULD LIKE HER TYLENOL WITH HER HS MEDS ERWIN TO HER WITH HER OVERALL JOINT PROBLEMS ALONG WITH HER LEFT HIP SURGICAL AREA. CALL LIGHT IS WITHIN REACH AND SHE WILL LET THE STAFF KNOW WHEN SHE IS READY TO GO BACK TO BED.
--- NOTE | 2016-10-11 23:04 | NUR ---
PT. IN BED WITH HOB UP FOR COMFORT WITH EYES CLOSED AND RESP. DEEP AND EVEN. CALL LIGHT WITHIN REACH.
--- NOTE | 2016-10-12 03:04 | NUR ---
PT. IN BED WITH HOB UP FOR COMFORT AND AWAKENS EASILY AND NEEDS ASSISTANCE TO BR TO URINATE. ASSISTED INTO W/C AND TO BR. ASSISTED BACK TO BED AND POSITIONED TO COMFORT. CALL LIGHT WITHIN REACH.
[2016-10-12 08:00] VITALS: BP 119/60
--- NOTE | 2016-10-12 08:00 | NUR ---
PATIENT AWAKE SITTING UP IN WHEELCHAIR AT BEDSIDE. ALERT/ORIENTX4. CALL LIGHT WITHIN REACH. VOICES NO NEEDS
[2016-10-12 08:18] LABS: BASOPHILS 0.2 % (0.0-2.0); EOSINOPHILS 3.3 % (0-7); HEMATOCRIT 30.2 % (36.0-48.0); HEMOGLOBIN 9.8 g/dL (12-16); IMMATURE GRANULOCYTES 1.4 % (0-5); LYMPHOCYTES 10.3 % (15-50); MCH 29.3 pg (26.0-34.0); MCHC 32.5 g/dL (31.0-37.0); MCV 90.1 fL (80.0-100.0); MEAN PLATELET VOLUME 10.2 fL (7.4-10.4); MONOCYTES 5.7 % (2-11); NEUTROPHILS 79.1 % (40-80); PLATELET COUNT 379 10x3/uL (130-400); RBC 3.35 10x6/uL (4.00-5.40); WBC 10.9 10x3/uL (4.8-10.8)
[2016-10-12 08:47] LABS: ANION GAP 15.2 mmol/L (8-16); CALCIUM 7.8 mg/dL (8.5-10.1); CARBON DIOXIDE 23.3 mmol/L (21.0-32.0); CREATININE - SERUM 1.2 mg/dL (0.6-1.3); POTASSIUM - SERUM 4.5 mmol/L (3.5-5.1)
--- NOTE | 2016-10-12 10:00 | NUR ---
PATIENT IN REHAB ROOM WORKING WITH PHYSICAL THERAPIST. DENIES ANY PAIN/DISC AT THIS TIME
--- NOTE | 2016-10-12 12:00 | NUR ---
GLUCOSE LEVEL 258. SIX UNITS OF SLIDING SCALE INSULIN GIVEN PER ORDER
--- NOTE | 2016-10-12 14:40 | NUR ---
PATIENT WORKING WITH OCCUPATIONAL THERAPIST. TAKING A SHOWER
--- NOTE | 2016-10-12 16:52 | NUR ---
GLUCOSE LEVEL 101. NO SLDING SCALE GIVEN
--- NOTE | 2016-10-12 18:18 | NUR ---
PATIENT SITTING UP IN WHEELCHAIR AT BEDSIDE TO EAT SUPPER. OXYGEN ON AT 2L PER N/C NO SOB NOTED
[2016-10-12 19:00] VITALS: BP 121/59
--- NOTE | 2016-10-12 22:31 | NUR ---
PT RECEIVED IN WHEELCHAIR AT BEDSIDE VISITING WITH GUEST AND ROOMMATE. NO COMPLAINTS OR CONCERNS MADE KNOWN. CALL LIGHT IN REACH.
--- NOTE | 2016-10-13 02:23 | NUR ---
PT IN BED WITH EYES CLOSED AND CHEST RISING. NO CONCERNS NOTED. NO SIGN/SYPTOMS OF DISTRESS NOTED. CALL LIGHT IN REACH.
[2016-10-13 07:00] VITALS: BP 128/58
--- NOTE | 2016-10-13 07:30 | NUR ---
PT UP IN W/C TALKING WITH ROOMMATE. DENIES PAIN AT THIS TIME. WAITING ON BREAKFAST. WILL MONITOR
--- NOTE | 2016-10-13 14:14 | NUR ---
SITTING UP IN WC.DENIES NEEDS.CL IN REACH.
--- NOTE | 2016-10-13 17:14 | NUR ---
FSBS 188 PT REF COVERAGE. UP IN CHAIR VISITING WITH FAMILY
--- NOTE | 2016-10-13 18:18 | NUR ---
PT REQUESTED A PAIN PILL FOR HER HEAD HURTING. GAVE HER 1 NORCO. PT UP IN W/C WATCHING TV.
--- NOTE | 2016-10-13 19:45 | NUR ---
PT IS RESTING IN A WC IN HER ROOM. REQUESTED TO USE THE BATHROOM AND ASSIST TO GET READY FOR BED. TRANSFERS WITH MOD ASSIST. TOILETED WITH SBA. DRESSING WITH MOD ASSIST. ASSISTED INTO BED. 3 INCISIONS TO LEFT HIP ARE CDI. NO DRAINAGE NOTED. CLIPS ARE INTACT. VSS. SR'S ARE UP X 2 IN BED. CALL LIGHT AND BEDSIDE TABLE ARE WITHIN EASY REACH.
--- NOTE | 2016-10-13 21:16 | NUR ---
PT IS RESTING QUIETLY IN BED WITH EYES CLOSED. RESPS ARE EVEN AND UNLABORED. NO ACUTE DISTRESS NOTED.
[2016-10-13 21:53] VITALS: BP 121/63
--- NOTE | 2016-10-13 23:22 | NUR ---
RESTING IN BED WITH EYES CLOSED.
--- NOTE | 2016-10-14 03:02 | NUR ---
RESTING IN BED WITH EYES CLOSED.
--- NOTE | 2016-10-14 04:28 | NUR ---
PT RESTING IWTH EYES CLOSED, OCCASIONAL MOAN, NO S/S OF ACUTE DISTRESS.
--- NOTE | 2016-10-14 06:07 | NUR ---
PT RESTING IN BED WITH EYES CLOSED. AWOKE EASILY TO VERBAL STIMULI. TOLERATED AM MED WITHOUT DIFFICULTY. NO NEEDS VOICED.
[2016-10-14 07:00] VITALS: BP 120/63
--- NOTE | 2016-10-14 07:55 | NUR ---
SITTING IN WHEELCHAIR IN THE BR WASHING FACE.
--- NOTE | 2016-10-14 09:55 | NUR ---
C/O OF NUMBNESS TO HANDS AND LIPS. BS 267, GIVEN MEDS WITH EASE.
--- NOTE | 2016-10-14 11:46 | NUR ---
BS 229, 4 UNITS OF HUMALOG GIVEN.
--- NOTE | 2016-10-14 13:54 | NUR ---
SITTING IN WHEELCHAIR IN THE ROOM.
--- NOTE | 2016-10-14 15:59 | NUR ---
SITTING IN WHEELCHAIR IN THE ROOM EXCORIATION TO LT GROIN, CALMOSEPTINE ORDERED.
--- NOTE | 2016-10-14 17:54 | NUR ---
SITTING IN WHEELCHAIR EATING DINNER.
[2016-10-14 19:45] VITALS: BP 132/60
--- NOTE | 2016-10-14 20:05 | NUR ---
CALMASEPTINE APPLIED TO GROIN AREA.
--- NOTE | 2016-10-15 00:05 | NUR ---
PT IN BED WITH HOB UP FOR COMFORT, EYES CLOSED, CHEST RISING AND FALLING, BED IN LOWEST POSITION AND CALL LIGHT WITHIN REACH.
--- NOTE | 2016-10-15 03:24 | NUR ---
CALMASEPTINE APPLIED TO GROIN AREA.
--- NOTE | 2016-10-15 04:04 | NUR ---
PT IN BED WITH HOB UP FOR COMFORT, EYES CLOSED, CHEST RISING AND FALLING, BED IN LOWEST POSITION AND CALL LIGHT WITHIN REACH.
[2016-10-15 06:09] LABS: BASOPHILS 0.3 % (0.0-2.0); EOSINOPHILS 3.2 % (0-7); HEMATOCRIT 29.6 % (36.0-48.0); HEMOGLOBIN 9.2 g/dL (12-16); IMMATURE GRANULOCYTES 0.9 % (0-5); LYMPHOCYTES 12.7 % (15-50); MCH 28.1 pg (26.0-34.0); MCHC 31.1 g/dL (31.0-37.0); MCV 90.5 fL (80.0-100.0); MEAN PLATELET VOLUME 10.6 fL (7.4-10.4); MONOCYTES 9.2 % (2-11); NEUTROPHILS 73.7 % (40-80); PLATELET COUNT 421 10x3/uL (130-400); RBC 3.27 10x6/uL (4.00-5.40); RDW 15.2 % (11.5-14.5); WBC 9.4 10x3/uL (4.8-10.8)
[2016-10-15 06:24] LABS: ANION GAP 11.7 mmol/L (8-16); CALCIUM 7.7 mg/dL (8.5-10.1); CARBON DIOXIDE 28.1 mmol/L (21.0-32.0); CREATININE - SERUM 1.2 mg/dL (0.6-1.3); POTASSIUM - SERUM 3.8 mmol/L (3.5-5.1)
[2016-10-15 09:25] VITALS: BP 125/59
--- NOTE | 2016-10-15 19:04 | NUR ---
PT SITTING UP IN IN WHEELCHAIR TALKING ON PHONE, DENIES NEEDS. WCTM. BED LOW. CL IN REACH.
[2016-10-15 19:37] VITALS: BP 133/62
--- NOTE | 2016-10-15 21:50 | NUR ---
PT HS MEDS ADMINISTERED. RODOLFO APPLIED TO GROIN. PT REQ AND REC'D PRN PAIN MEDICATION. PT BBOBY TO LEFT HIP REMOVED. INCISION IS WELL APPROXIMATED. PT DENIES FURTHER NEEDS AT THIS TIME. BED LOW. CL IN REACH.
--- NOTE | 2016-10-16 00:36 | NUR ---
PT RESTING, EYES CLOSED. BED LOW. CL IN REACH.
--- NOTE | 2016-10-16 03:38 | NUR ---
PT RESTING, EYES CLOSED. BED LOW. CL IN REACH. WCTM.
--- NOTE | 2016-10-16 07:00 | NUR ---
Pt. was received at the beginning of this shift in bed awake and oriented x 3. No verbal complaints at this time. Vital signs: Temp. 98.6, pulse 84, resp. 15, b/p 126/55, 02Sat. 98%. Will be monitoring her and assisting prn with adl's. Call light is in reach.
[2016-10-16 09:05] VITALS: BP 126/55
--- NOTE | 2016-10-16 11:55 | NUR ---
Nutrition Follow Up: Pt reported that her appetite is good. She said that she likes the food. Pt stated that she always eats small meals and said she is eating the same amount that she does at home. Pt refused Glucerna at this time. Pt is eating 57% meal avg on a diabetic diet. +BM 10/15/16. No new wt to assess. Labs noted - Glucose elevated. Meds noted including Januvia, Humalog, Amaryl. Pt with fair po intake at this time. Rec continue current diet. RD following.
--- NOTE | 2016-10-16 13:41 | NUR ---
Pt. request a pain pill around 0820 and received a Imboden 10mg tab at that time. She went on to therapy this morning. No more signs of discomfort.
--- NOTE | 2016-10-16 16:29 | NUR ---
Pt. has had an uneventful day today. No changes in health status to report. She went to therapy today and worked well. She also had a shower today with OT helping her. Will be observing her till the end of this shift as well as assisting her with her adl's. Call light remains within her reach.
[2016-10-16 19:15] VITALS: BP 135/77
--- NOTE | 2016-10-16 19:54 | NUR ---
PT SITTING UP IN WHEELCHAIR WATCHING TV, DENIES NEEDS. CL IN REACH.
--- NOTE | 2016-10-16 20:20 | NUR ---
PT HS MEDS ADMINISTERED. PT DENIES NEEDS. WCTM. BED LOW. CLIN REACH.
--- NOTE | 2016-10-16 23:32 | NUR ---
PT RESTING, EYES CLOSED. BED LOW. CL IN REACH.
--- NOTE | 2016-10-17 02:26 | NUR ---
PT RESTING, EYES CLOSED. BED LOW. CLIN REACH.
--- NOTE | 2016-10-17 06:09 | NUR ---
PT RESTING IN BED. AM MEDS ADMINISTERED. PT DENIES NEEDS. BED LOW. CL INR EACH.
[2016-10-17 06:13] LABS: BASOPHILS 0.2 % (0.0-2.0); EOSINOPHILS 3.6 % (0-7); HEMATOCRIT 31.5 % (36.0-48.0); HEMOGLOBIN 9.9 g/dL (12-16); IMMATURE GRANULOCYTES 0.3 % (0-5); LYMPHOCYTES 14.8 % (15-50); MCH 28.7 pg (26.0-34.0); MCHC 31.4 g/dL (31.0-37.0); MCV 91.3 fL (80.0-100.0); MEAN PLATELET VOLUME 10.7 fL (7.4-10.4); MONOCYTES 8.1 % (2-11); PLATELET COUNT 407 10x3/uL (130-400); RBC 3.45 10x6/uL (4.00-5.40); RDW 15.3 % (11.5-14.5); WBC 8.7 10x3/uL (4.8-10.8)
[2016-10-17 06:33] LABS: ANION GAP 11.2 mmol/L (8-16); CALCIUM 7.5 mg/dL (8.5-10.1); CARBON DIOXIDE 26.7 mmol/L (21.0-32.0); CREATININE - SERUM 1.2 mg/dL (0.6-1.3); POTASSIUM - SERUM 3.9 mmol/L (3.5-5.1)
--- NOTE | 2016-10-17 07:25 | NUR ---
AWAKE.DENIES NEEDS.NO SIGNS OF ACUTE DISTRESS.ASSESSMENT COMPLETED.WANTS PAIN MED WITH MORNING MEDS PRE PHYSICAL TERAPHY.LEFT LEGS VERY SWOLLEN ,INCISIONS TO LEFT HIP HEALING WELL.CL IN EASY REACH,BED IN LOW POSITION.CONTINUE WITH PLAN OF CARE.
[2016-10-17 07:56] VITALS: BP 119/56
--- NOTE | 2016-10-17 09:12 | NUR ---
PO MEDS TAKEN WITHOUT DIFFICULTY.
--- NOTE | 2016-10-17 09:51 | NUR ---
SPOKE WITH PATIENT AND SHE HAS REQUESTED TO GO TO [facility]. REFERRAL HAS BEEN FAXED
--- NOTE | 2016-10-17 14:02 | NUR ---
PATIENT DISCHARGING TO [facility] ON 10/18/16 VIA FACILITY VAN. NO DME OR HOME HEALTH NEEDED AT THIS TIME. APPOINTMENT WITH WILL BE MADE AT TIME OF DISHCARGE FROM FACILITY. DR. ESQUIVEL 10/22/16 @ 10:15. PATIENT CHOICE FORM FOR SN[facility] AND [facility] FORM SIGNED, EXPLIANED AND FILED IN CHART WITH UNDERSTANDING. PATIENT EDUCATED ON SIGNS AND SYMPTOMS OF INFECTION OF SURGICAL SITE. DAUGHTER , ALDO NOTIFIED OF PATIENTS ACCEPTANCE OF FACILITY. DAUGHTER ATTENED CARE TEAM MEETING.WILL FOLLOW WITH PATIENT UNTIL DISCHARGED
--- NOTE | 2016-10-17 19:53 | NUR ---
PT IN WHEELCHAIR AT BEDSIDE WATCHING TV. NO COMPLAINTS OF PAIN OR DISCOMFORT NOTED. NO OTHER NEEDS MADE KNOWN. CALL LIGHT IN REACH.
[2016-10-17 20:04] VITALS: BP 117/62
--- NOTE | 2016-10-17 23:09 | NUR ---
PT IN BED WITH EYES CLOSED AND CHEST RISING. NO SIGN/SYMPTOMS OF DISTRESS NOTED. CALL LIGHT IN REACH.
--- NOTE | 2016-10-18 04:52 | NUR ---
PT IN BED WITH EYES CLOSED AND CHEST RISING. NO SIGN/SYMPTOMS OF DISTRESS NOTED. CALL LIGHT IN REACH.
--- NOTE | 2016-10-18 08:00 | NUR ---
PATIENT SITTING UP IN WHEELCHAIR BY THE SIDE OF THE BED. ALERT/ORIENT X4. CALL LIGHT WITHIN REACH. EATTING BREAKFAST.
[2016-10-18 08:21] VITALS: BP 121/58
--- NOTE | 2016-10-18 09:33 | NUR ---
DISCHARGE PAPER WORK DONE. PATIENT TO BE DISCHARGED TO [facility]. TO BE COMFORT FILLER BY FACILITY AT 9:30
--- NOTE | 2016-10-18 09:47 | NUR ---
PRN PAIN MEDICATION GIVEN FOR LEFT UPPER THIGH PAIN PER PATIENTS REQUEST
--- NOTE | 2016-10-18 10:32 | NUR ---
[facility] HERE TO TRANSPORT PATIENT TO FACILITY. HELPED OUT BY STAFF. REPORT CALLED TO LESLIE IRVING
== END 2016-10-18 10:44 | DRG 560 ==
LOC: D.REHAB 16:15
PROVIDERS: ADMIT Emergency Medicine
DX: S72.002D Fracture of unspecified part of neck of left femur, subsequent encounter for closed fracture with routine healing (principal); D62 Acute posthemorrhagic anemia; N39.0 Urinary tract infection, site not specified; I10 Essential (primary) hypertension; E03.9 Hypothyroidism, unspecified; W17.89XA Other fall from one level to another, initial encounter; R06.00 Dyspnea, unspecified; R52 Pain, unspecified; Z66 Do not resuscitate; E11.65 Type 2 diabetes mellitus with hyperglycemia; E87.70 Fluid overload, unspecified; E86.0 Dehydration

== ENCOUNTER → 2016-10-25 08:49 | Outpatient (CLI) | payer MEDICARE ==
[2016-10-03 12:56] VITALS: BMI 27.4
== END | disposition home or self-care (01) ==
LOC: D.RAD 08:49
DX: S72.142A Displaced intertrochanteric fracture of left femur, initial encounter for closed fracture (principal)

== ENCOUNTER → 2016-11-09 09:01 | Outpatient (CLI) | payer MEDICARE ==
[2016-10-03 12:56] VITALS: BMI 27.4
== END | disposition home or self-care (01) ==
LOC: D.RAD 09:01
DX: R05 Cough (principal)